=== PATIENT | female | born 1980 | race Hispanic/Latino ===

== ENCOUNTER 2024-06-01 19:00 | Inpatient (IN) | payer MEDICAID ==
[2024-06-01] MEDS ORDERED: Promethazine HCl 25 MG/ML VIAL IM PRN (20:30)
[2024-06-01] MEDS ORDERED: Diphenoxylate HCl/Atropine Tablet PO PRN (20:30)
[2024-06-01] MEDS ORDERED: Tranexamic Acid 1,000 MG/10 ML VIAL IVP PRN (20:30)
[2024-06-01] MEDS ORDERED: Ondansetron PF 4 MG/2 ML Vial IVP PRN (20:30)
[2024-06-01] MEDS ORDERED: Misoprostol 200 MCG TAB PR PRN (20:30)
[2024-06-01] MEDS ORDERED: Methylergonovine 0.2 MG/ML VIAL IM PRN (20:30)
[2024-06-01] MEDS ORDERED: hydrALAZINE 20 MG/ML VIAL SLOW IVP PRN (20:30)
[2024-06-01] MEDS ORDERED: Lidocaine 1% (PF) 30 ML VIAL SC PRN (20:30)
[2024-06-01] MEDS ORDERED: Carboprost 250 MCG/ML AMP IM PRN (20:30)
[2024-06-01] MEDS: Lactated Ringer's 1,000 ML IV SCH (20:45)
[2024-06-01 21:42] LABS: Hematocrit 32.7 % (34.9-44.5); Hemoglobin 11.2 g/dL (12.0-15.5); Mean Corpuscular HGB CONC 34.3 g/dL (32.0-36.0); Mean Corpuscular Hemoglobin 31.5 pg (27.0-33.0); Mean Corpuscular Volume 92.1 fL (81.6-98.3); Mean Platelet Volume 12.2 fL (7.4-10.4); Platelet Count 175 10x3/uL (150-450); RBC Distribution Width 14.1 % (11.5-14.5); Red Blood Cell (RBC) Count 3.55 10x6/uL (3.90-5.03); White Blood Cell (WBC) Count 7.5 10x3/uL (3.5-10.5)
[2024-06-01 21:59] LABS: ALT (SGPT) 17 U/L (8-55); AST (SGOT) 22 U/L (5-34); Albumin 3.4 g/dL (3.5-5.0); Alkaline Phosphatase 141 U/L (40-110); Anion Gap 15 mmol/L (10-20); BUN (Urea Nitrogen) 7 mg/dL (7.0-18.7); Bilirubin, Total 0.3 mg/dL (0.2-1.2); Calc. Creatinine Clearance 129 mL/min (70-130); Calcium 9.4 mg/dL (7.8-10.44); Carbon Dioxide 20 mmol/L (22-29); Chloride 106 mmol/L (98-107); Estimated GFR 109; Globulin 3.3 g/dL (2.4-3.5); Potassium 3.8 mmol/L (3.5-5.1); Protein, Total 6.7 g/dL (6.0-8.3); Sodium 137 mmol/L (136-145)
[2024-06-01 22:06] LABS: Syphilis Antibody Nonreactive (Nonreactive); Syphilis Antibody Index 0.04 S/CO (<1.00 Non-Reactive)
[2024-06-01 22:09] LABS: Hep B Surf Ag - L&D Non-Reactive S/CO (NonReactive)
[2024-06-01 22:18] LABS: Glucose 81 mg/dL (70-105)
[2024-06-01] MEDS: Misoprostol 100 MCG TAB VAG SCH (22:34)
[2024-06-02] MEDS: Oxytocin 30 units/NS 500 ML 500 ML IV SCH (19:08)
[2024-06-03] MEDS: fentaNYL 50 mcg/mL 1 mL Vial SLOW IVP SCH (06:22)
[2024-06-03 07:20] LABS: Analyzer IN Cardio CS NICU
[2024-06-03 07:22] LABS: Analyzer IN Cardio CS NICU; pH (Cord, venous) 7.314 (7.250-7.350)
[2024-06-03] MEDS ORDERED: Methylergonovine 0.2 MG/ML VIAL IM PRN (10:15)
[2024-06-03] MEDS ORDERED: hydrALAZINE 20 MG/ML VIAL SLOW IVP PRN (10:15)
[2024-06-03] MEDS ORDERED: Boostrix 0.5 ML (Tdap) VIAL (>/=7 yrs of age) IM ONE (10:15)
[2024-06-03] MEDS ORDERED: Bisacodyl 10 MG SUPP PR PRN (10:15)
[2024-06-03] MEDS ORDERED: Preparation H Ointment 28 GM TUBE PR PRN (10:15)
[2024-06-03] MEDS ORDERED: Lanolin Ointment 7 GM TUBE TOP PRN (10:15)
[2024-06-03] MEDS ORDERED: Ondansetron PF 4 MG/2 ML Vial IVP PRN (10:15)
[2024-06-03] MEDS ORDERED: Benzocaine-Menthol 82.5 ML CAN TOP PRN (10:15)
[2024-06-03] MEDS ORDERED: Promethazine HCl 25 MG/ML VIAL IM PRN (10:15)
[2024-06-03] MEDS ORDERED: Milk Of Magnesia 30 ML UDCUP PO PRN (10:15)
[2024-06-03] MEDS ORDERED: Misoprostol 200 MCG TAB VAG PRN (10:15)
[2024-06-03] MEDS ORDERED: Oxytocin 30 units/NS 500 ML 500 ML IV SCH (10:15)
[2024-06-03] MEDS ORDERED: diphenhydrAMINE 25 MG CAP PO PRN (10:15)
[2024-06-03] MEDS: Misoprostol 200 MCG TAB ONE (10:16)
[2024-06-03] MEDS: Lidocaine 1% (PF) 30 ML VIAL ONE (10:16)
[2024-06-03] MEDS: Ferrous Sulfate 325 MG TAB PO SCH ×2 (10:59→12:54)
[2024-06-03] MEDS: Prenatal Vitamin 1 TAB PO SCH (12:13)
[2024-06-03] MEDS: Ibuprofen 800 MG TAB PO SCH (12:13)
[2024-06-03] MEDS: Docusate 100 MG CAP PO SCH ×2 (12:13→20:14)
[2024-06-04] MEDS: Acetaminophen 500 MG TAB PO SCH (00:01)
[2024-06-04] MEDS: Prenatal Vitamin 1 TAB PO SCH (08:01)
[2024-06-04 22:56] VITALS: TEMP 97.7
[2024-06-05 08:01] VITALS: BP 138/75
== END 2024-06-05 14:05 | disposition home or self-care (01) | DRG 807 ==
LOC: CSHLD 20:03 → CSHPP 06-03 11:05
PROVIDERS: ADMIT Family Medicine; ATTEND Family Medicine
PROC: 10E0XZZ Delivery of Products of Conception, External Approach (ICD-10-PCS; principal; 2024-06-03)
PROC: 0UQMXZZ Repair Vulva, External Approach (ICD-10-PCS; 2024-06-03)
DX: O24.425 Gestational diabetes mellitus in childbirth, controlled by oral hypoglycemic drugs (principal); Z37.0 Single live birth; Z3A.38 38 weeks gestation of pregnancy; O71.82 Other specified trauma to perineum and vulva; O69.81X0 Labor and delivery complicated by cord around neck, without compression, not applicable or unspecified
CPT/HCPCS: 36415; 36416; 80053; 82805; 85027; 86780; 86850; 86900; 86901; 87340; J2590; J3010; J7120